=== PATIENT | male | born 1965 | race Caucasian/White ===

== ENCOUNTER 2017-04-14 20:51 | Emergency (ER) | payer OTHER ==
[~2017-04-14] VITALS: Ht 170.2 cm; Wt 81.7 kg
[~2017-04-14 20:51] MED LIST: GLIPIZIDE XL10 M1 PO; GLUCOTROL XL10 MG PO; GLUCOTROL10 MG PO; IBUPROFEN800 MG PO; JANUVIA100 MG PO; JANUVIA25 MG PO; LIPITOR10 MG PO; LISINOPRIL5 MG PO; PERCOCET 5/31 TABLET PO; PRILOSEC20 MG PO; TYLENOL EXTRA500 MG PO; ZOFRAN4 MG PO
[2017-04-14 21:24] LABS: EOSINOPHIL (%) 1.2 % (0-5); EOSINOPHIL COUNT 0.1 K/uL (0-0.3); HEMATOCRIT 38.7 % (38.0-50.0); IMMATURE GRANULOCYTE (%) 0.4 % (0.0-0.7); INSTRUMENT ABS NEUTROPHIL CT 7.3 K/uL; LYMPHOCYTE COUNT 1.1 K/uL (1.0-2.8); MCHC 35.1 G/DL (30.0-36.0); MCV 85.4 FL (86-99); MEAN PLAT.VOLUME 9.8 uM^3 (9.0-12.4); MONOCYTE (%) 6.2 % (3-12); MONOCYTE COUNT 0.6 K/uL (0-0.8); NEUTROPHIL COUNT 7.3 K/uL (1.8-6.4); PLATELET COUNT 199 K/uL (156-360); RBC DIS.WIDTH-CV 11.7 % (11.8-14.6); RBC DIS.WIDTH-SD 36.3 % (39-53); RED BLOOD COUNT 4.53 M/uL (4.00-5.50); WHITE BLOOD COUNT 9.1 K/uL (4.1-10.2)
[2017-04-14 21:30] LABS: CHLORIDE 107 mEq/L (99-109); POTASSIUM 4.4 mEq/L (3.7-5.4); SODIUM 136 mEq/L (136-147)
[2017-04-14 21:33] LABS: GLUCOSE 218 mg/dL (70-99)
[2017-04-14 21:34] LABS: ANION GAP 5 MEQ/L (2-14)
[2017-04-14 21:35] LABS: TOTAL BILIRUBIN 0.6 mg/dL (0.0-1.0)
[2017-04-14 21:36] LABS: ALKALINE PHOSPHATASE 65 IU/L (3-129); GFR ESTIMATE (CALCULATED) > 59 mL/min/
[2017-04-14 21:37] LABS: UREA NITROGEN (BUN) 12 mg/dL (9-23)
[2017-04-14 21:53] LABS: ERTH.SED.RATE 3 MM/HR (0-20)
[2017-04-14 22:02] LABS: ADD MIUA? NO; BILIRUBIN NEGATIVE; BLOOD NEGATIVE; COLOR YELLOW ((YELLOW)); GLUCOSE (STRIP) 150; KETONES 5; LEUKOCYTES NEGATIVE; NITRITE NEGATIVE; PROTEIN (STRIP) NEGATIVE; SPECIFIC GRAVITY 1.025 (1.000-1.030); UCUL ADDED? NO; UROBILINOGEN 0.2 MG/DL (0.2-1.0)
[2017-04-14 22:21] LABS: C-REACTIVE PROTEIN < 1.0 MG/L (0-10)
[2017-04-14] MEDS ORDERED: COMPAZINE10 MG PO (22:50)
[2017-04-14 23:11] VITALS: BP 136/79
== END 2017-04-14 23:11 | disposition home or self-care (01) ==
LOC: EME → EDBD 20:51 → EME 20:51
PROVIDERS: Emergency Medicine
DX: G43.909 Migraine, unspecified, not intractable, without status migrainosus (principal); E11.9 Type 2 diabetes mellitus without complications; Z79.84 Long term (current) use of oral hypoglycemic drugs; Z87.442 Personal history of urinary calculi
CPT/HCPCS: 70450; 80053; 81003; 85025; 85651; 86140; 99281; 99284; J0780; J1200; J7030

== ENCOUNTER 2018-02-12 00:35 | Emergency (ER) | payer OTHER ==
[~2018-02-12] VITALS: Ht 170.2 cm; Wt 83.3 kg
[~2018-02-12 00:35] MED LIST changes: +COMPAZINE10 MG PO
[2018-02-12 02:16] VITALS: BP 129/74
[2018-02-12] MEDS ORDERED: NAPROSYN500 MG PO (02:17)
[2018-02-12] MEDS ORDERED: ULTRAM50 MG PO (02:17)
== END 2018-02-12 02:29 | disposition home or self-care (01) ==
LOC: EME 00:35 → EXP 00:35
DX: S09.8XXA Other specified injuries of head, initial encounter (principal); S16.1XXA Strain of muscle, fascia and tendon at neck level, initial encounter; S50.01XA Contusion of right elbow, initial encounter; S50.311A Abrasion of right elbow, initial encounter; W01.198A Fall on same level from slipping, tripping and stumbling with subsequent striking against other object, initial encounter; Y99.0 Civilian activity done for income or pay; E11.9 Type 2 diabetes mellitus without complications; Z79.84 Long term (current) use of oral hypoglycemic drugs
CPT/HCPCS: 70450; 72125; 73080

== ENCOUNTER 2018-04-01 09:15 | Inpatient (IN) | payer OTHER ==
[~2018-04-01] VITALS: Ht 170.2 cm; Wt 81.9 kg
[~2018-04-01 09:15] MED LIST changes: +NAPROSYN500 MG PO; +ULTRAM50 MG PO
[2018-04-01 10:13] LABS: BASOPHIL (%) 0.3 % (0-1); EOSINOPHIL (%) 0.3 % (0-5); HEMATOCRIT 36.9 % (38.0-50.0); HEMOGLOBIN 13.6 G/DL (12.5-16.6); IMMATURE GRANULOCYTE (%) 0.4 % (0.0-0.7); LYMPHOCYTE COUNT 0.6 K/uL (1.0-2.8); MCH 30.4 PG (29.0-34.0); MCHC 36.9 G/DL (30.0-36.0); MCV 82.6 FL (86-99); MONOCYTE (%) 9.2 % (3-12); MONOCYTE COUNT 1.1 K/uL (0-0.8); NEUTROPHIL (%) 84.8 % (45-76); PLATELET COUNT 184 K/uL (156-360); RBC DIS.WIDTH-CV 11.5 % (11.8-14.6); RBC DIS.WIDTH-SD 34.3 % (39-53); RED BLOOD COUNT 4.47 M/uL (4.00-5.50); WHITE BLOOD COUNT 11.8 K/uL (4.1-10.2)
[2018-04-01 10:17] LABS: CARBON DIOXIDE (BICARBONATE) 26.9 MEQ/L (20-31)
[2018-04-01 10:22] LABS: ALBUMIN 3.6 g/dL (3.2-4.8); CHLORIDE 100 mEq/L (99-109); POTASSIUM 3.6 mEq/L (3.7-5.4); SODIUM 133 mEq/L (136-147)
[2018-04-01 10:25] LABS: GLUCOSE 242 mg/dL (70-99); TOTAL PROTEIN 6.7 g/dL (6.4-8.3)
[2018-04-01 10:27] LABS: TOTAL BILIRUBIN 0.9 mg/dL (0.0-1.0)
[2018-04-01 10:28] LABS: ALKALINE PHOSPHATASE 69 IU/L (3-129); GFR ESTIMATE (CALCULATED) > 59 mL/min/ (58.99-99999)
[2018-04-01 10:29] LABS: UREA NITROGEN (BUN) 16 mg/dL (9-23)
[2018-04-01 10:30] LABS: AST (GOT) 13 IU/L (2-34)
[2018-04-01 10:31] LABS: ALT (GPT) 18 IU/L (3-49)
[2018-04-01 11:05] LABS: APPEARANCE CLOUDY ((CLEAR)); BILIRUBIN NEGATIVE; BLOOD SMALL; COLOR YELLOW ((YELLOW)); GLUCOSE (STRIP) NEGATIVE; KETONES 5; LEUKOCYTES LARGE; NITRITE POSITIVE; PROTEIN (STRIP) 100; SPECIFIC GRAVITY 1.019 (1.000-1.030); UROBILINOGEN 0.2 MG/DL (0.2-1.0)
[2018-04-01 11:25] LABS: RED BLOOD CELLS RARE /HPF (0-5)
[2018-04-01 11:26] LABS: BACTERIA 3+ /HPF; EPITHELIAL CELLS RARE /HPF; MUCUS NONE SEEN /LPF; UCUL ADDED? YES; WHITE BLOOD CELLS 40-50 /HPF (0-5)
[2018-04-01] MEDS ORDERED: PRINIVIL5 MG PO (12:58)
[2018-04-01] MEDS ORDERED: GLUCOPHAGE500 MG PO (13:06)
[2018-04-01] MEDS ORDERED: LOW DOSE ASPIRI81 M1 PO (13:07)
[2018-04-01] MEDS ORDERED: FISH OIL 1,2001 EAC4 PO (13:07)
[2018-04-01] MEDS ORDERED: FIORICET 50-301 EAC1 PO (13:08)
[2018-04-01 15:14] VITALS: BP 119/59
[2018-04-01 17:48] VITALS: BP 113/59
[2018-04-01 19:00] VITALS: BP 114/62
[2018-04-01 23:00] VITALS: BP 108/66
[2018-04-02 04:30] VITALS: BP 106/58
[2018-04-02 05:37] LABS: HEMATOCRIT 33.5 % (38.0-50.0); HEMOGLOBIN 11.7 G/DL (12.5-16.6); MCH 29.8 PG (29.0-34.0); MCHC 34.9 G/DL (30.0-36.0); MCV 85.2 FL (86-99); PLATELET COUNT 175 K/uL (156-360); RBC DIS.WIDTH-CV 11.6 % (11.8-14.6); RBC DIS.WIDTH-SD 36.2 % (39-53); RED BLOOD COUNT 3.93 M/uL (4.00-5.50); WHITE BLOOD COUNT 7.9 K/uL (4.1-10.2)
[2018-04-02 06:28] LABS: CHLORIDE 105 MEQ/L (99-109); CREATININE 0.9 MG/DL (0.6-1.3); GFR ESTIMATE (CALCULATED) > 59 mL/min/ (58.99-99999); POTASSIUM 3.8 MEQ/L (3.7-5.4); SODIUM 137 MEQ/L (136-147); UREA NITROGEN (BUN) 12 mg/dL (9-23)
[2018-04-02 06:29] LABS: GLUCOSE 111 mg/dL (70-99)
[2018-04-02 07:24] VITALS: BP 109/60
[2018-04-02 11:43] VITALS: BP 156/61
[2018-04-02 13:13] VITALS: BP 115/59
[2018-04-02 16:33] VITALS: BP 122/67
[2018-04-02 20:37] VITALS: BP 115/63
[2018-04-03 00:29] VITALS: BP 120/75
[2018-04-03 03:36] VITALS: BP 115/68
[2018-04-03 07:22] VITALS: BP 119/69
[2018-04-03] MEDS ORDERED: LEVAQUIN500 MG PO (10:56)
[2018-04-03] MEDS ORDERED: FLOMAX0.4 MG PO (11:00)
[2018-04-03 11:16] VITALS: BP 123/72
== END 2018-04-03 12:17 | disposition home or self-care (01) | DRG 872 ==
LOC: EME 09:15 → EDOF 13:11 → 4EAST 13:11 → ENRESERV 13:24 → 4EAST 14:11 → ENRESERV 04-02 10:07 → 5SOUTH 04-02 13:03 → ENPENDDIS 04-03 12:26
PROVIDERS: Emergency Medicine; Hospitalist; Internal Medicine
DX: A41.9 Sepsis, unspecified organism (principal); E11.9 Type 2 diabetes mellitus without complications; N13.6 Pyonephrosis; G43.909 Migraine, unspecified, not intractable, without status migrainosus; Z87.891 Personal history of nicotine dependence; Z79.84 Long term (current) use of oral hypoglycemic drugs; B96.89 Other specified bacterial agents as the cause of diseases classified elsewhere; E87.1 Hypo-osmolality and hyponatremia; E87.6 Hypokalemia; Z79.82 Long term (current) use of aspirin; Z87.442 Personal history of urinary calculi; I87.8 Other specified disorders of veins
CPT/HCPCS: 71045; 74018; 74176; 80048; 80053; 81003; 82010; 82803; 82948; 83605; 85025; 85027; 87040; 87086; 87801; 99281; 99285; J0696; J1885; J7030